=== PATIENT | male | born 1955 | race Caucasian/White ===

== ENCOUNTER 2019-05-03 15:05 | Emergency (ER) | payer BC, OTHER ==
[2019-05-03 16:05] VITALS: BP 141/87
--- NOTE | 2019-05-03 16:37 | ED ---
Skin Complaint - HPI Summary HPI Summary: Patient is a 61-year-old male presenting to the ED with right second toe erythema, slight swelling. He states this occurred mostly 4 days ago when he was working on some concrete and was bending over frequently. He is unsure of an abrasion or a scrape to the area. He denies any pain to the area. This is not happening to him before. He denies any history of gout. Denies any fevers , sweats, chills. He noticed this morning there was redness extending into the foot which did not happen previously. He continues to be ambulatory. - History of Current Complaint Chief Complaint: EDExtremityLower Time Seen by Provider: 05/03/19 15:15 Stated Complaint: RIGHT FOOT PAIN Hx Obtained From: Patient Onset/Duration: Started Hours Ago Skin Exposure Onset/Duration: Days Ago Timing: Constant Onset Severity: Moderate Current Severity: Moderate Pain Intensity: 3 Pain Scale Used: 0-10 Numeric Skin Location: Other: - second R toe with erythema and warmth Character: Redness Aggravating Symptom(s): Nothing Alleviating Symptom(s): Nothing Associated Signs & Symptoms: Negative - Allergy/Home Medications Allergies/Adverse Reactions: Allergies Allergy/AdvReac Type Severity Reaction Status Date / Time amoxicillin Allergy Intermediate Diarrhea Uncoded 05/03/19 15:12 PMH/Surg Hx/FS Hx/Imm Hx Previously Healthy: Yes Endocrine/Hematology History: Denies: Hx Diabetes, Hx Thyroid Disease Cardiovascular History: Denies: Hx Hypertension Respiratory History: Denies: Hx Asthma, Hx Chronic Obstructive Pulmonary Disease (COPD) GI History: Denies: Hx Ulcer - Surgical History Surgery Procedure, Year, and Place: appendectomy - Immunization History Hx Pertussis Vaccination: No Immunizations Up to Date: Yes Infectious Disease History: No Infectious Disease History: Denies: Hx Clostridium Difficile, Hx Hepatitis, Hx Human Immunodeficiency Virus (HIV), Hx Shingles, Hx Tuberculosis, History Other Infectious Disease, Traveled Outside the [place] in Last 30 Days - Social History Occupation: Employed Full-time Lives: With Family Alcohol Use: Occasionally Hx Substance Use: No Substance Use Type: Reports: None Smoking Status (MU): Unknown if Ever Smoked Review of Systems Negative: Fever, Chills, Fatigue, Skin Diaphoresis Negative: Palpitations, Chest Pain Negative: Shortness Of Breath, Cough Genitourinary: Negative Positive: no symptoms reported, see HPI Negative: Arthralgia, Myalgia Positive: Other - erythema and warmth to second toe - R foot Neurological: Negative All Other Systems Reviewed And Are Negative: Yes Physical Exam Triage Information Reviewed: Yes Vital Signs On Initial Exam: Initial Vitals Temp Pulse Resp BP Pulse Ox 98.2 F 94 17 158/109 97 05/03/19 15:10 05/03/19 15:10 05/03/19 15:10 05/03/19 15:10 05/03/19 15:10 Vital Signs Reviewed: Yes Appearance: Positive: Well-Appearing, Well-Nourished Skin: Positive: Warm, Skin Color Reflects Adequate Perfusion, Other - erythema and warmth to second toe Neck: Positive: No Lymphadenopathy Respiratory/Lung Sounds: Positive: Clear to Auscultation, Breath Sounds Present Cardiovascular: Positive: RRR, Pulses are Symmetrical in both Upper and Lower Extremities Musculoskeletal: Positive: Strength/ROM Intact Neurological: Positive: Speech Normal Diagnostics - Vital Signs Vital Signs Temp Pulse Resp BP Pulse Ox 05/03/19 16:04 98.5 F 89 16 141/87 97 05/03/19 15:10 98.2 F 94 17 158/109 97 - Laboratory Lab Statement: Any lab studies that have been ordered have been reviewed, and results considered in the medical decision making process. Course/Dx - Course Course Of Treatment: Physical examination, there is an erythematous, warm, slightly swollen second toe to the right foot. There is small amount of erythema extending now into the dorsum of the foot. Patient is able to ambulate. Denies history of gout, cellulitis or MRSA. He has not taken any medication for relief. He states he has soaked it in Epson salt without relief. Patient is able to flex and extend the toe without limitations of range of motion. As this is non-painful, this is less likely to be gout, however he will be treated for a cellulitic infection and will take ibuprofen 600 mg 3 times daily to cover for a possible gout flare. He is OK with plan and discharge. - Differential Diagnoses - Skin Complaint Differential Diagnoses: Other - gout - Diagnoses Provider Diagnoses: Cellulitis Discharge - Sign-Out/Discharge Documenting (check all that apply): Patient Departure Patient Received Moderate/Deep Sedation with Procedure: No - Discharge Plan Condition: Stable Disposition: HOME Prescriptions: Cephalexin CAP* [Keflex CAP*] 500 mg PO QID #21 cap MDD 3 Ibuprofen 600 mg PO TID PRN #12 tablet MDD 3 PRN Reason: Pain Patient Education Materials: Cellulitis (ED), Gout (ED) Referrals: No Primary Care Phys,NOPCP [Primary Care Provider] - Additional Instructions: Keflex three times daily x 7 days - your first two doses will be today You may soak in epsom salt if this improves your symptoms Ibuprofen 600mg three times daily x 4 days for inflammation Ice to the area may help with discomfort and any swelling - Billing Disposition and Condition Condition: STABLE Disposition: Home
== END 2019-05-03 16:04 | disposition home or self-care (01) ==
LOC: ED 15:05
DX: L03.031 Cellulitis of right toe (principal); Z88.1 Allergy status to other antibiotic agents
CPT/HCPCS: 99282

== ENCOUNTER 2019-05-10 11:26 | Emergency (ER) | payer BC ==
--- NOTE | 2019-05-10 11:42 | ED ---
Lower Extremity - HPI Summary HPI Summary: This patient is a 63 year old M presenting to [facility] with a chief complaint of blisters in second digit on right foot since coming to ED on 05/03/19. Pt was diagnosed with cellulitis on 05/03/19. When pressure is placed on toe, pain will increase. When pressure is placed on toe, pain will increase. Pt describes foot as puffy and swollen. 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 Pt is not diabetic. Per triage, The patient rates the pain 3/10 in severity. Pt denies any fever, chills, sweats, erythema of eyes, sore throat, CP, SOB, cough , abdominal pain, N/V, dysuria, hematuria, myalgia, rash, or dizziness - History of Current Complaint Chief Complaint: EDExtremityLower Stated Complaint: RT FOOT PAIN PER PT Time Seen by Provider: 05/10/19 11:29 Hx Obtained From: Patient Onset of Pain: Days Onset/Duration: Still Present Severity Initially: Moderate Severity Currently: Mild Pain Intensity: 3 Pain Scale Used: 0-10 Numeric Location: Is Discrete @ - second digit on right toes Associated Signs And Symptoms: Positive: Negative - chills, sweats, erythema of eyes, sore throat, CP, SOB, cough, N/V, dysuria, hematuria, myalgia, rash, or dizziness;, Swelling. Negative: Fever, Abdominal Pain - Allergies/Home Medications Allergies/Adverse Reactions: Allergies Allergy/AdvReac Type Severity Reaction Status Date / Time amoxicillin Allergy Diarrhea Verified 05/10/19 11:30 PMH/Surg Hx/FS Hx/Imm Hx Endocrine/Hematology History: Denies: Hx Diabetes, Hx Thyroid Disease Cardiovascular History: Denies: Hx Hypertension Respiratory History: Denies: Hx Asthma, Hx Chronic Obstructive Pulmonary Disease (COPD) GI History: Denies: Hx Ulcer - Surgical History Surgery Procedure, Year, and Place: appendectomy Infectious Disease History: No Infectious Disease History: Denies: Hx Clostridium Difficile, Hx Hepatitis, Hx Human Immunodeficiency Virus (HIV), Hx Shingles, Hx Tuberculosis, History Other Infectious Disease, Traveled Outside the [place] in Last 30 Days - Family History Known Family History: Positive: Diabetes Negative: Hypertension - Social History Occupation: Employed Full-time Alcohol Use: Occasionally Hx Substance Use: No Substance Use Type: Reports: None Smoking Status (MU): Unknown if Ever Smoked Review of Systems Negative: Fever, Chills Negative: Erythema Negative: Sore Throat Negative: Chest Pain Negative: Shortness Of Breath, Cough Negative: Abdominal Pain, Vomiting, Nausea Negative: dysuria, hematuria Positive: Edema - second toe on right foot. Negative: Myalgia Negative: Rash All Other Systems Reviewed And Are Negative: Yes Physical Exam - Summary Physical Exam Summary: Constitutional: Well-developed, Well-nourished, Alert. (-) Distressed Skin: Warm, Dry HENT: Normocephalic; Atraumatic Eyes: Conjunctiva normal Neck: Musculoskeletal ROM normal neck. (-) JVD, (-) Stridor, (-) Tracheal deviation Cardio: Rhythm regular, rate normal, Heart sounds normal; Intact distal pulses; The pedal pulses are 2+ and symmetric. Radial pulses are 2+ and symmetric. (-) Murmur Pulmonary/Chest wall: Effort normal. (-) Respiratory distress, (-) Wheezes, (-) Rales Abd: Soft, (-) tenderness, (-) Distension, (-) Guarding, (-) Rebound Musculoskeletal: (-) Edema, right second toe light colored blistered which are no erythematous or fluctuant , full ROM of toe, no erythema Lymph: (-) Cervical adenopathy Neuro: Alert, Oriented x3 Psych: Mood and affect Normal Triage Information Reviewed: Yes Vital Signs On Initial Exam: Initial Vitals Temp Pulse Resp BP Pulse Ox 98.7 F 94 18 122/82 98 05/10/19 11:28 05/10/19 11:28 05/10/19 11:28 05/10/19 11:28 05/10/19 11:28 Vital Signs Reviewed: Yes Diagnostics - Vital Signs Vital Signs Temp Pulse Resp BP Pulse Ox 05/10/19 11:28 98.7 F 94 18 122/82 98 - Laboratory Lab Statement: Any lab studies that have been ordered have been reviewed, and results considered in the medical decision making process. Lower Extremity Course/Dx - Course Course Of Treatment: This patient is a 63 year old M presenting to [facility] with a chief complaint of blisters in second digit on right foot since 04/29/19. When pressure is placed on toe, pain will increase. Pt describes foot as puffy and swollen. 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 Pt is not diabetic. Per triage, the patient rates the pain 3 /10 in severity. Physical Exam is normal but right second toe light colored blistered which are no erythematous or fluctuant, full ROM of toe, no erythema. Patient's toe was wrapped. Toe is suspected to be burned from cement. Pt will be discharged with a follow up at [facility]. The patient is agreeable with this plan. - Diagnoses Provider Diagnoses: Burn of toe Discharge - Sign-Out/Discharge Documenting (check all that apply): Patient Departure - Discharge Patient Received Moderate/Deep Sedation with Procedure: No - Discharge Plan Condition: Stable Disposition: HOME Patient Education Materials: Second Degree Burn (ED) Referrals: Care [facility] [Outside] - 3 Days Additional Instructions: Follow up with [facility] within 2-3 days. RETURN TO THE EMERGENCY DEPARTMENT FOR CHANGING OR WORSENING SYMPTOMS - Attestation Statements Document Initiated by Scribe: Yes Documenting Scribe: Vani Mathew Provider For Whom Scribe is Documenting (Include Credential): Dr. Navneet Patel MD Scribe Attestation: Vani Aldridge, scribed for Dr. Navneet Patel MD on 05/10/19 at 1429. Status of Scribe Document: Ready
[2019-05-10 12:06] VITALS: BP 127/90
== END 2019-05-10 12:05 | disposition home or self-care (01) ==
LOC: ED 11:26
DX: T25.031A Burn of unspecified degree of right toe(s) (nail), initial encounter (principal); X08.8XXA Exposure to other specified smoke, fire and flames, initial encounter; Y92.9 Unspecified place or not applicable; Z88.1 Allergy status to other antibiotic agents
CPT/HCPCS: 99282